=== PATIENT | female | born 1940 | race Caucasian/White ===

== ENCOUNTER 2023-08-30 04:04 | Emergency (ER) | payer MEDICARE, OTHER ==
[~2023-08-30] VITALS: Ht 160 cm; Wt 62.2 kg
[2023-08-30 06:29] VITALS: BP 132/66; PULSE 78; RESP 0; TEMP 98.3
[2023-08-30] MEDS: ACETAMINOPHEN 325 MG TABLET PO ONE (06:30)
== END 2023-08-30 09:00 | disposition home or self-care (01) ==
LOC: EMS 04:04
DX: M25.511 Pain in right shoulder (principal); F41.9 Anxiety disorder, unspecified; E78.00 Pure hypercholesterolemia, unspecified; I10 Essential (primary) hypertension
CPT/HCPCS: 72040; 99284; 73030-TC; Z7502

== ENCOUNTER 2023-10-23 15:56 | Emergency (ER) | payer MEDICARE ==
[~2023-10-23] VITALS: Ht 160 cm; Wt 54.5 kg
[2023-10-23] MEDS ORDERED: LIDO1ADH23 TP (16:27)
[2023-10-23] MEDS ORDERED: IBUP-1506 PO (16:27)
[2023-10-23] MEDS ORDERED: SENN-338 PO (16:27)
[2023-10-23] MEDS ORDERED: ACET-3385 PO (16:27)
[2023-10-23] MEDS ORDERED: DONE-51 PO (16:27)
[2023-10-23] MEDS ORDERED: GABA-1181 PO (16:27)
[2023-10-23] MEDS ORDERED: DICL100G60 TP (16:27)
[2023-10-23] MEDS ORDERED: ALEN70TA65 PO (16:27)
[2023-10-23] MEDS ORDERED: MEMA10TA24 PO (16:27)
[2023-10-23] MEDS ORDERED: CALC-1267 PO (16:27)
[2023-10-23 16:36] VITALS: TEMP 98.2
[2023-10-23 16:49] LABS: COVID AG,FIA SOURCE NASAL SWAB
[2023-10-23 17:47] LABS: SARS-COV2 (COVID) ANTIGEN,FIA Positive (Negative)
[2023-10-23 18:00] VITALS: BP 122/54; PULSE 65; RESP 18
[2023-10-23 18:01] LABS: BASOPHILS % (AUTO) 0.3 % (0.0-2.0); EOSINOPHILS % (AUTO) 0.6 % (1.0-6.0); HEMATOCRIT 38.3 % (36-46); HEMOGLOBIN 12.2 g/dL (12.0-16.0); LYMPHOCYTES # (AUTO) 2.3 K/uL (1.0-4.8); LYMPHOCYTES % (AUTO) 28.4 % (22.0-44.0); MEAN CORPUSCULAR HEMOGLOBIN 29.5 pg (26.0-34.0); MEAN CORPUSCULAR VOLUME 92 fL (80-100); MONOCYTES # (AUTO) 0.8 K/uL (0.1-1.0); MONOCYTES % (AUTO) 9.7 % (2.0-9.0); PLATELET COUNT (AUTO) 282 K/uL (150-450); RED BLOOD CELL COUNT(AUTO) 4.14 MIL/uL (4.00-5.20); RED CELL DISTRIBUTION WIDTH 14.4 % (11.5-14.5); WHITE BLOOD COUNT (AUTO) 8.1 K/uL (4.5-11.0)
[2023-10-23 18:08] LABS: CALCIUM, TOTAL 9.1 mg/dL (8.8-10.5); CREATININE 1.01 mg/dL (0.60-1.30); POTASSIUM 3.8 mmol/L (3.5-5.1)
[2023-10-23 18:23] LABS: ALBUMIN 3.3 g/dL (3.4-5.0); BILIRUBIN,TOTAL 0.3 mg/dL (0.1-1.0); TOTAL PROTEIN, SERUM 7.7 g/dL (6.4-8.2)
[2023-10-23 18:27] LABS: TROPONIN I-HIGH SENSITIVITY 4 ng/L (<51)
[2023-10-23] MEDS ORDERED: SODIUM CHLORIDE 0.9% 100 ML ONE (19:22)
[2023-10-23] MEDS ORDERED: IOHEXOL 350 MG/ML 100 ML VIAL ONE (19:22)
== END 2023-10-24 ==
LOC: EMS 15:56
DX: U07.1 COVID-19 (principal); R53.1 Weakness; R07.89 Other chest pain; I10 Essential (primary) hypertension
CPT/HCPCS: 99285; 71275; 71045; 87426; 80053; 83880; 84484; 85025; 85379; 36415; 93005; Q9967; J7050